=== PATIENT | female | born 1995 | race African-American/Black ===

== ENCOUNTER 2024-06-24 06:07 | Emergency (ER) | payer MEDICAID ==
[~2024-06-24] VITALS: Ht 167.6 cm; Wt 77.6 kg
[2024-06-24 06:30] VITALS: O2SAT 99
[2024-06-24] MEDS ORDERED: ONDANSETRON HCL 4MG/2ML INJ IV ONE (07:00)
[2024-06-24] MEDS ORDERED: FAMOTIDINE 20MG/2ML VIAL IV ONE (07:00)
[2024-06-24 07:23] LABS: CHLORIDE 106 mEq/L (98-107); SODIUM 140 mEq/L (136-145)
[2024-06-24 07:24] LABS: BASOPHILS % 0.6 % (0.0-2.0); CARBON DIOXIDE 27 mEq/L (21-32); EOSINOPHILS % 0.7 % (0.0-5.0); HEMATOCRIT. 39.2 % (36.0-48.0); HEMOGLOBIN. 13.3 g/dL (12.0-16.0); LYMPHOCYTES % 23.6 % (20.0-50.0); MEAN CORPUSCULAR HEMOGLOBIN 31.8 pg (28.0-32.0); MEAN CORPUSCULAR HGB CONC 33.8 g/dL (31.0-37.0); MEAN PLATELET VOLUME 8.8 fl (7.4-10.4); NEUTROPHILS % 66.1 % (40.0-76.0); PLATELET 298 x1000/uL (130-400); RED BLOOD CELL COUNT 4.17 mill/uL (4.2-5.4); RED CELL DISTRIBUTION WIDTH 13.8 % (11.6-14.6); WHITE BLOOD COUNT 6.6 x1000/uL (4.5-11.0)
[2024-06-24 07:25] LABS: CALCIUM 9.7 mg/dL (8.7-10.4)
[2024-06-24 07:29] LABS: CREATININE 0.8 mg/dL (0.6-1.0); GLUCOSE 90 mg/dL (70-105)
[2024-06-24 07:30] LABS: UREA NITROGEN BLOOD 13 mg/dL (9-23)
[2024-06-24 07:31] LABS: ALANINE AMINOTRANSFERASE 19 IU/L (10-49); ALBUMIN 4.4 g/dL (3.2-4.8); ASPARTATE AMINOTRANSFERASE 18 IU/L (<34)
[2024-06-24 07:32] LABS: BILIRUBIN DIRECT 0.2 mg/dL (<=3.0); BILIRUBIN TOTAL 0.5 mg/dL (0.1-1.0); PROTEIN TOTAL 7.5 g/dL (6.0-8.3)
[2024-06-24 07:57] LABS: CLARITY URINE CLOUDY (CLEAR); COLOR URINE DARK YELLOW (YELLOW); GLUCOSE URINE NEGATIVE (NEGATIVE); KETONES URINE TRACE (NEGATIVE); LEUKOCYTE ESTERASE URINE NEGATIVE (NEGATIVE); NITRITE URINE NEGATIVE (NEGATIVE); OCCULT BLOOD URINE 1+ (NEGATIVE); PROTEIN URINE 1+ (NEGATIVE); SPECIFIC GRAVITY URINE 1.033 (1.005-1.030)
[2024-06-24 08:42] LABS: CALCIUM OXALATE CRYSTALS URINE 4+ /lpf; MUCUS URINE 1+ /lpf (< = 2+); SQUAMOUS EPITHELIAL CELL URINE 3+ /lpf (RARE/1+)
[2024-06-24 08:43] LABS: BACTERIA URINE 1+
[2024-06-24 08:44] LABS: WBC URINE 0-2 /hpf (0-2)
[2024-06-24 08:45] LABS: RBC URINE NONE SEEN /hpf (0-2)
[2024-06-24] MEDS ORDERED: NAPR-681 MT (08:46)
[2024-06-24] MEDS ORDERED: FAMO-135 MT (08:47)
[2024-06-24 09:19] VITALS: BP 109/76; PULSE 84; RESP 18; TEMP 36.89184; O2SAT 99
== END 2024-06-24 09:21 | disposition home or self-care (01) ==
LOC: ER 06:07
DX: S93.692A Other sprain of left foot, initial encounter (principal); R10.84 Generalized abdominal pain; E28.2 Polycystic ovarian syndrome; Z88.0 Allergy status to penicillin; X58.XXXA Exposure to other specified factors, initial encounter; Y93.89 Activity, other specified; Y92.89 Other specified places as the place of occurrence of the external cause; Y99.8 Other external cause status
CPT/HCPCS: 36415; 73630; 74176; 80048; 80076; 81003; 81025; 85025; 99284

== ENCOUNTER 2024-10-13 13:58 | Emergency (ER) | payer MEDICAID ==
[~2024-10-13] VITALS: Ht 152.4 cm; Wt 58.9 kg
[~2024-10-13 13:58] MED LIST: FAMO-135 MT; NAPR-681 MT
[2024-10-13 14:04] VITALS: O2SAT 99
[2024-10-13 14:08] VITALS: BP 132/84; PULSE 92; RESP 16; TEMP 36.8; O2SAT 99
[2024-10-13 14:48] LABS: EOSINOPHILS % 0.8 % (0.0-5.0); HEMATOCRIT. 39.8 % (36.0-48.0); HEMOGLOBIN. 13.3 g/dL (12.0-16.0); LYMPHOCYTES % 35.1 % (20.0-50.0); MEAN CORPUSCULAR HGB CONC 33.4 g/dL (31.0-37.0); MEAN CORPUSCULAR VOLUME 92.8 fL (81.0-99.0); MEAN PLATELET VOLUME 8.2 fl (7.4-10.4); MONOCYTES % 8.3 % (2.0-8.0); NEUTROPHILS % 54.8 % (40.0-76.0); PLATELET 303 x1000/uL (130-400); RED BLOOD CELL COUNT 4.29 mill/uL (4.2-5.4); RED CELL DISTRIBUTION WIDTH 13.8 % (11.6-14.6); WHITE BLOOD COUNT 6.4 x1000/uL (4.5-11.0)
[2024-10-13 14:58] LABS: CHLORIDE 104 mEq/L (98-107); SODIUM 141 mEq/L (136-145)
[2024-10-13 14:59] LABS: CARBON DIOXIDE 30 mEq/L (21-32)
[2024-10-13 15:04] LABS: CREATININE 0.7 mg/dL (0.6-1.0); GLUCOSE 91 mg/dL (70-105)
[2024-10-13 15:05] LABS: UREA NITROGEN BLOOD 13 mg/dL (9-23)
[2024-10-13 15:06] LABS: ALANINE AMINOTRANSFERASE 16 IU/L (10-49); ALBUMIN 4.5 g/dL (3.2-4.8); ASPARTATE AMINOTRANSFERASE 14 IU/L (<34)
[2024-10-13 15:07] LABS: BILIRUBIN DIRECT 0.1 mg/dL (<=3.0); BILIRUBIN TOTAL 0.5 mg/dL (0.1-1.0); HCG SCREEN NEGATIVE; PROTEIN TOTAL 7.8 g/dL (6.0-8.3)
[2024-10-13 15:19] LABS: CLARITY URINE CLEAR (CLEAR); COLOR URINE YELLOW (YELLOW); GLUCOSE URINE NEGATIVE (NEGATIVE); KETONES URINE NEGATIVE (NEGATIVE); LEUKOCYTE ESTERASE URINE NEGATIVE (NEGATIVE); NITRITE URINE NEGATIVE (NEGATIVE); OCCULT BLOOD URINE NEGATIVE (NEGATIVE); PH URINE 6.5 (4.5-8.0); PROTEIN URINE TRACE (NEGATIVE); SPECIFIC GRAVITY URINE 1.023 (1.005-1.030); UROBILINOGEN URINE 0.2 E.U./dL (0.2-1.0)
[2024-10-13 16:54] LABS: BACTERIA URINE 1+; RBC URINE 0-2 /hpf (0-2); SQUAMOUS EPITHELIAL CELL URINE FEW /lpf (RARE/1+); WBC URINE 0-2 /hpf (0-2)
[2024-10-13] MEDS ORDERED: ONDANSETRON HCL 4MG/2ML INJ IM STA (18:05)
[2024-10-13] MEDS ORDERED: ONDA4TAB50 MT (18:07)
[2024-10-13] MEDS ORDERED: FAMOTIDINE 20MG TABLET PO ONE (18:15)
== END 2024-10-13 18:13 | disposition home or self-care (01) ==
LOC: ER 13:58
DX: R10.30 Lower abdominal pain, unspecified (principal); Z88.0 Allergy status to penicillin; Z98.890 Other specified postprocedural states
CPT/HCPCS: 36415; 74176; 76830; 76856; 80048; 80076; 81003; 84703; 85025; 99284

== ENCOUNTER 2025-04-30 16:31 | Emergency (ER) | payer MEDICAID ==
[~2025-04-30] VITALS: Ht 152.4 cm; Wt 79.0 kg
[~2025-04-30 16:31] MED LIST changes: +ONDA4TAB50 MT
[2025-04-30 17:10] VITALS: O2SAT 97
[2025-04-30 17:56] LABS: BASOPHILS % 0.6 % (0.0-2.0); EOSINOPHILS % 1.3 % (0.0-5.0); HEMATOCRIT. 39.4 % (36.0-48.0); HEMOGLOBIN. 13.0 g/dL (12.0-16.0); LYMPHOCYTES % 37.0 % (20.0-50.0); MEAN PLATELET VOLUME 8.6 fl (7.4-10.4); MONOCYTES % 8.3 % (2.0-8.0); NEUTROPHILS % 52.8 % (40.0-76.0); PLATELET 302 x1000/uL (130-400); RED BLOOD CELL COUNT 4.36 mill/uL (4.2-5.4); RED CELL DISTRIBUTION WIDTH 15.0 % (11.6-14.6)
[2025-04-30 18:12] LABS: CREATININE 0.7 mg/dL (0.6-1.0); UREA NITROGEN BLOOD 7 mg/dL (9-23)
[2025-04-30 18:41] LABS: B-HCG QUANTITATIVE 5156 mIU/mL (<6)
[2025-04-30] MEDS: ONDANSETRON HCL 4MG/2ML INJ IV ONE (19:52)
[2025-04-30] MEDS: SODIUM CHLORIDE 0.9% 1,000 ML IV ONE (20:01)
[2025-04-30] MEDS: PYRIDOXINE 100 MG/ML 1ML IV ONE (20:10)
[2025-04-30 21:00] VITALS: BP 128/80; PULSE 85; RESP 15; TEMP 36.6; O2SAT 100
== END 2025-04-30 21:05 | disposition home or self-care (01) ==
LOC: ER 16:31
DX: O20.0 Threatened abortion (principal); Z79.1 Long term (current) use of non-steroidal anti-inflammatories (NSAID); Z79.899 Other long term (current) drug therapy; Z88.0 Allergy status to penicillin; Z3A.01 Less than 8 weeks gestation of pregnancy
CPT/HCPCS: 99285; 96374; 76801; 96361; 80048; 81025; 84702; 85025; 86850; 86900; 86901; 36415; 76817; J3415; J7030; J2405